=== PATIENT | female | born 1985 | race Caucasian/White ===

== ENCOUNTER 2023-04-19 08:12 | Emergency (ER) | payer OTHER, SELFPAY ==
[2023-04-19 08:13] VITALS: BP 108/71; PULSE 88; RESP 14; TEMP 36.8; O2SAT 99; BMI 19.1
--- NOTE | 2023-04-19 08:33 | EX.ED.DYSGE1 ---
HPI History of Present Illness Chief Complaint: Abn Labs Informant: patient Narrative Narrative: Patient is a 37 year old female presenting for concern of carbon monoxide poisoning. Patient states she woke up swelling and gas smell. She notes she had a mild headache. Her daughter also is presenting with a mild headache. She went to be checked out to make sure that they did not have exposure to carbon monoxide. She did call the [employer] and they said that the smell is because of some construction going on. She did take some Tylenol for her headache. She notes it is improved. Denies any other complaints at this time. Denies any associated nausea, vomiting or blurry vision. Notes that she is a pack per day smoker. PFSH PFSH Allergy/AdvReac Type Severity Reaction Status Date / Time Penicillins Allergy Unknown PT UNSURE Verified 04/19/23 08:16 OF REACTION Social History Smoking Status: Current every day smoker ROS ROS ED Constitutional Constitutional ED: Denies chills or fever(s) Eyes Eyes: Denies blurry vision Respiratory/Chest Respiratory/Chest: Denies cough Gastrointestinal Gastrointestinal: Denies nausea or vomiting Musculoskeletal Musculoskeletal: Denies arthralgias or myalgias Integumentary Denies rash Neurologic Neurologic: Reports headache(s) Hematologic/Lymphatic Hematologic/Lymphatic: Denies easy bruising EXAM Physical Exam Const Vital Signs: 04/19/23 08:13 04/19/23 08:12 Temperature 98.2 F Temperature Source Temporal Pulse Rate 88 Respiratory Rate 14 Respiratory Effort Normal Respiratory Pattern Normal Blood Pressure 108/71 Blood Pressure Mean 83 Pulse Ox 99 Oxygen Delivery Method Room Air Positive well nourished and well developed General Appearance ED: well developed and NAD HEENT Reports moist mucous membranes Eyes PERRL Neck supple Chest Wall inspection of chest normal and palpation of chest normal Resp normal respiratory effort and clear to auscultation bilaterally Cardio regular rate and regular rhythm GI normal to inspection, nondistended, normoactive bowel sounds Extremity normal to inspection Neuro oriented x3 and CN's II-XII intact bilaterally Sensorium / Orientation: alert Motor Exam: Negative for general weakness Psych mental status grossly normal Skin no rashes or lesions noted MDM MDM MDM Narrative Medical decision making narrative: Patient is evaluated for concern of, monoxide poisoning. Vital signs are normal. Will obtain a carboxyhemoglobin level and just position according to that. Patient given water in the ER. Patient's headache is mild and she has normal neurologic exam. No nuchal rigidity. I do not think she requires any neuroimaging or further workup for the headache. Carboxyhemoglobin level is borderline high at 10. Patient is a smoker this is still in the normal range. Counseled that she should have her house checked for carbon oxide either by the [employer] or by the local fire station but can be discharged home at this time. Patient agreeable this plan of care. Has no progression or further symptoms while in the emergency room. Lab Data Attestation: I reviewed the patient's lab results. Lab results narrative: Laboratory Data 04/19/23 09:05 VBG Carboxyhemoglobin 10.0 H* ABG Data ABG results: ABG 04/19/23 09:05 VBG Carboxyhemoglobin 10.0 H* Discharge Plan Triage Chief Complaint: Abn Labs ED Provider: Amina Romero Dx/Rx/DC Orders Clinical Impression: Headache, Exposure to natural gas Instructions: ED Carbon Monoxide Poisoning Primary Care Provider: Marilee Meneses Referrals: [facility] Doctor,Out of [Non-Staff] - Activity Restrictions/Additional Instructions: Your carbon monoxide level is mildly elevated but this can be caused also by tobacco use as well. Please try to quit smoking. You do not have an unsafe level and do not require any treatment. Please follow-up either with a [employer] company or the fire department to have the residents checked for carbon oxide level to make sure you have working carbon oxide detectors in your house. Disposition Disposition: Home, Self Care
--- OUTSIDE RECORDS SUMMARY | 2023-04-19 09:28 | XMS RPT_ITS | CCD ---
Author Name Unknown Address [address] [place] [id number] Organization [facility] Care Team Providers [facility] [employer] Name Role Phone FrantzOmer altamirano Ernie Karla Marilee Reddy Unavailable Unavailable Problems Active Problems Problem Classification Problem Date Documented Da te Episodic/Chronic Unclassified (1 source) Unknown / UNK(Unknown) Onset: 07-28-2017 Past or Other Problems Problem Classification Problem Date Documented Da te Episodic/Chronic Unclassified (1 source) COSMETIC Onset: 07-28-2017 Results Test Name Value Interpretation Reference Range Facil ity Encounters Encounter Date Encounter Type Care Provider Facility Start: 07-28-2017 Evaluation and manag ement of inpatient Omer Blandon Facility:[facility] Payers Date Payer Category Payer Policy ID Unknown [id number] Progress note 10-09-2020 Note Date & Type Note Facility 10-09-2020 Note HNO ID: [id number] Author: Marilee Meneses MD Service: ? Author Type: Physician Type: Progress Notes Filed: 10/09/2020 2:17 PM Note Text: Error. [facility] Progress note 10-09-2020 Note Date & Type Note Facility 10-09-2020 Note HNO ID: [id number] Author: Marilee Meneses MD Service: ? Author Type: Physician Type: Progress Notes Filed: 10/09/2020 2:17 PM Note Text: Reason for Visit Patient presents with: Established Patient: discuss med for stopping smoking Zabrina Potter is a 35 year old female who presents here today for Above Complaints.. Health Maintenance DEPRESSION SCREENING HEPATITIS C SCREENING HIV SCREENING DTAP,TDAP,TD(1 - Tdap) PAP TESTING HPV TESTING HPI Smoking cessation: Zabrina Potter is otherwise healthy 35-year-old female who has a 20 pack year of smoking. Started at age 14, was up to 1 pack a day for almost the entire time. She has watched her grandma struggle with COPD especially in the humid weather or when it is extremely hot. Grandmother is on oxygen and she is miserable with weather changes and it has limited her ability to do what she likes. Watching her grandmother has changed her view of smoking and she would like to quit smoking. In fact a couple years ago under my recommendation she got onto Wellbutrin and she quit smoking for 7 months. Ran out of medication thought she did not need it and stopped the Wellbutrin following which she had a trigger and she picked up smoking. Her 2 teenage daughters as well as her grandmother are one of the main reasons she wants to quit smoking. I went over extensively with her cessation tips and-did offer her a handout that she can go over. In fact and asked her to mentally make up her mind and have victory over the mental aspect of her before she will try to quit smoking. Last time when she was in Wellbutrin she had no side effects. She is willing to use the gum this time as needed I encouraged her to take a pneumonia shot today and she has agreed to do that. [facility] and [facility] and have asked her to give his records for it. No problem-specific Assessment AND Plan notes found for this encounter. PAST MEDICAL HISTORY Diagnosis Date - Abnormal glandular Papanicolaou smear of cervix Abn. Pap smear (cervix) - Migraine, unspecified, with intractable migraine, so stated, without mention of status migrainosus Migraine PAST SURGICAL HISTORY Procedure Laterality Date - DANDC, DIAG AND/OR THERAPEUTIC Dilation AND curettage - REMOVAL OF TONSILS,<12 Y/O Tonsillectomy FAMILY HISTORY Problem Relation Age of Onset - other (melanoma [Other]) Unknown great grand parents, maternal and paternal. Social History Tobacco Use - Smoking status: Current Every Day Smoker Packs/day: 0.50 Years: 4.00 Pack years: 2.00 Types: Cigarettes - Smokeless tobacco: Never Used Substance Use Topics - Alcohol use: No - Drug use: No Past medical history, appointments, medications, allergies reviewed. Pertinent Lab/Diagnostic Studies are reviewed and discussed today Current Outpatient Medications: - nicotine polacrilex (NICORETTE) 4 mg gum - buPROPion SR (ZYBAN SR; WELLBUTRIN SR) 150 mg 12 hr tablet Review of Systems CONSTITUTIONAL: No fevers, chills night sweats, unintended weight loss CARDIOVASCULAR: No chest pain, dyspnea, palpitations, orthopnea, PND, ankle edema. PULM: No dyspnea, unexplained cough. GI: No dysphagia/odynophagia, problematic reflux, constipation, diarrhea, changes in stool habits, hematochezia, melena. : No new urinary complaints, including dysuria, gross hematuria or pyuria. NEURO: No new balance problems, peripheral weakness/paresthesias or numbness of concern. Physical Exam BP 120/70 (BP Site: Left Arm, BP Position: Sitting, BP Cuff Size: Regular Adult) Pulse 86 Temp 36.9 ?C (98.5 ?F) Resp 12 Ht 165.1 cm (5' 5 ) Wt 52.2 kg (115 lb) LMP 03/08/2008 SpO2 98% BMI 19.14 kg/m? General appearance: Well appearing, alert, in no acute distress, well nourished. Skin: Skin color, texture, turgor normal, no suspicious rashes or lesions Head: Normocephalic, no masses, lesions, tenderness or abnormalities Eyes: Anicteric sclera. Pupils are equally round and reactive to light. Extraocular movements are intact. Lungs: Lungs clear to auscultation. No wheezing, rhonchi, rales Heart: RRR without murmur, gallop, or rubs. Extremities: No deformities, edema, skin discoloration, clubbing or cyanosis. Good capillary refill. ASSESSMENT/PLAN: 1. Encounter for smoking cessation counseling - ICD9: V65.42, 305.1, ICD10: Z71.6 (primary diagnosis) - Cessation encouraged. - Physiologic and physical aspects of tobacco addiction as well as strategies for quitting were discussed. - Counseling was given focusing on the harmful effects of this addiction especially given the patient's medical condition(s) which will be worsened because of the chemicals in tobacco. - NICOTINE (POLACRILEX) 4 MG GUM - BUPROPION HCL SR 150 MG TABLET,12 HR SUSTAINED-RELEASE 2. Need for vaccination - ICD9: V05.9, ICD10: Z23 - PNEUMOCOCCAL IMMUNIZATION PPSV 23 Ch (more content not included)... [facility] Summary Purpose Family History No Family History Records FoundNo Family History Records Found Advance Directives No Advanced Directives Records FoundNo Advanced Directives Records Found Additional Source Comments INFORMATION SOURCE (unrecogn ized section and content) DATE CREATED AUTHOR AUTHOR'S VANIA YANG 03/31/2021 [facility] FOR RECORDS PERTAINING TO PATIENTS WHO ARE OR HAVE BEEN ENROLLED IN A CHEMICAL DEPENDENCY/SUBSTANCEABUSE PROGRAM, SOME INFORMATION MAY BE OMITTED. This clinical summary was aggregated from multiple sources. Caution should be exercised in using it in the provision of clinical care. This summary normalizes information from multiple sources, and as a consequence, information in this document may materially change the coding, format and clinical context of patient data. In addition, data may be omitted in some cases. CLINICAL DECISIONS SHOULD BE BASED ON THE PRIMARY CLINICAL RECORDS. [facility]. provides no warranty or guarantee of the accuracy or completeness of information in this document.
[2023-04-19 09:33] VITALS: BP 138/78; PULSE 79; RESP 16; TEMP 36.4; O2SAT 97
== END 2023-04-19 09:34 | disposition home or self-care (01) ==
PROVIDERS: Emergency Provider Emergency Medicine; PCP Internal Medicine; Visit Provider Emergency Medicine
DX: R51.9 Headache, unspecified (principal); T58.91XA Toxic effect of carbon monoxide from unspecified source, accidental (unintentional), initial encounter; F17.200 Nicotine dependence, unspecified, uncomplicated
CPT/HCPCS: 82375; 99282